=== PATIENT | female | born 1960 | race Caucasian/White ===

== ENCOUNTER → 2024-02-11 12:56 | Outpatient (REF) | payer BC, SELFPAY | LOC: WDC 12:56 | PROVIDERS: ATTENDING PHYSICIAN Obstetrics & Gynecology Gynecology; FAMILY PHYSICIAN Internal Medicine | DX: Z12.31 Encounter for screening mammogram for malignant neoplasm of breast (principal) | CPT/HCPCS: 77063; 77067 ==

== ENCOUNTER → 2024-07-29 06:26 | Day surgery (SDC) | payer MEDICARE, BC, SELFPAY ==
[2024-07-29 10:25] LABS: Glucose - Point of Care 128 mg/dl (70-99)
== END ==
LOC: GI 06:26
PROVIDERS: ATTENDING PHYSICIAN Internal Medicine Gastroenterology
DX: Z12.11 Encounter for screening for malignant neoplasm of colon (principal); D12.4 Benign neoplasm of descending colon; K57.30 Diverticulosis of large intestine without perforation or abscess without bleeding; K64.8 Other hemorrhoids; Z86.0100 Personal history of colon polyps, unspecified
CPT/HCPCS: 45385; 88305; 82962

== ENCOUNTER 2025-02-01 06:17 | Day surgery (SDC) | payer MEDICARE, BC, SELFPAY ==
[2025-02-01] VITALS (7 sets, daily range): BP systolic 112–159; BP diastolic 60–91; BMI 25.1
[2025-02-01 12:25] LABS: Glucose - Point of Care 118 mg/dl (70-99)
[2025-02-01 13:20] LABS: Glucose - Point of Care 105 mg/dl (70-99)
== END 2025-02-01 14:45 | disposition home or self-care (01) ==
LOC: SDS 06:17
PROVIDERS: ATTENDING PHYSICIAN Internal Medicine Critical Care Medicine
DX: J98.11 Atelectasis (principal)
CPT/HCPCS: 31623; 31624; 82962; 87070; 87102; 87116; 87205; 88112

== ENCOUNTER → 2025-02-17 11:08 | Outpatient (REF) | payer MEDICARE, BC, SELFPAY | LOC: WDC 11:08 | PROVIDERS: ATTENDING PHYSICIAN Obstetrics & Gynecology Gynecology; FAMILY PHYSICIAN Internal Medicine | DX: M85.89 Other specified disorders of bone density and structure, multiple sites (principal); Z12.31 Encounter for screening mammogram for malignant neoplasm of breast | CPT/HCPCS: 77063; 77067; 77080 ==

== ENCOUNTER → 2025-06-21 11:29 | Outpatient (REF) | payer MEDICARE, BC, SELFPAY | LOC: HWRAD 11:29 | PROVIDERS: ATTENDING PHYSICIAN Internal Medicine; FAMILY PHYSICIAN Internal Medicine | DX: J47.9 Bronchiectasis, uncomplicated (principal) | CPT/HCPCS: 71250 ==